=== PATIENT | female | born 1950 | race Caucasian/White ===

== ENCOUNTER 2018-04-08 13:13 | Inpatient (IN) | payer MEDICARE, BC, SELFPAY ==
[2018-04-08] VITALS (12 sets, daily range): BP systolic 139–155; BP diastolic 57–81; PULSE 66–84; RESP 14–18; TEMP 36.6–37.1; O2SAT 93–99; BMI 24.6; BMI 23.5
--- NOTE | 2018-04-08 13:22 | CT_ITS ---
Exam: CTA of the neck with contrast and 2-D reconstructions. HISTORY: Headache. Facial droop. Facial numbness. COMPARISON: None TECHNIQUE: Patient injected with 100 cc Isovue-370 IV. Axial images were followed with 2-D MIPS reconstructions reviewed at a separate workstation. FINDINGS: Normal appearance of the visualized aortic arch. Normal branching pattern of the great vessels. Common carotid arteries are normal for age. Small focal calcified plaque of the left carotid bulb. Otherwise normal carotid bulbs. No measurable stenosis at the carotid bulb or the origins of either ICA. Normal appearance of the cervical ICAs bilaterally to the base of the brain. Normal origin and appearance of the vertebral arteries. The left vertebral artery is dominant. Normal visualized basilar artery. Visualized soft tissues including the lung apices and visualized cervical spine show no gross acute abnormalities. CT/CTA Neck W/WO Contrast IMPRESSION: CTA of the neck vessels is normal for age. Electronically Signed: Santi Morataya MD at 14:28 EDT , Service support ,
--- NOTE | 2018-04-08 13:22 | CT_ITS ---
STUDY: CTA OF THE BRAIN REASON FOR EXAM: Female, 67 years old. Severe headache. Facial droop. Facial numbness. RADIATION DOSAGE (If Supplied By Facility): CTDIvol = ( 24.61 ) mGy, DLP = ( 1376.15 ) mGycm TECHNIQUE: CT angiography was performed with a multi-detector CT scanner. Data acquisition was obtained from the skull base through the vertex following intravenous administration of 100 ml of Isovue-370. MIP images were reconstructed from the axial data set. Post-processing of the angiographic images was performed, with multiplanar reformation and 3D reconstruction. # of Images: 615 Individualized dose optimization techniques were used for this CT. COMPARISON: None. FINDINGS: Normal bilateral petrous carotid arteries. Normal right cavernous carotid artery with a normal supraclinoid bifurcation. There is very mild calcified plaque formation of the left cavernous carotid artery, without a cross-sectional luminal stenosis. Normal right A1 segments of the anterior cerebral artery. Normal left A1 segments of the anterior cerebral artery. Normal intact anterior communicating artery (ACOM). Normal bilateral A2 segments of the anterior cerebral arteries. Normal right M1 and M2 segments of the middle cerebral arteries, with a normal M1 bifurcation. Normal left M1 and M2 segments of the middle cerebral arteries, with a normal M1 bifurcation. Normal right posterior communicating artery (PCOM). Normal left posterior communicating artery (PCOM). Normal bilateral vertebral arteries. Normal basilar artery with a normal basilar bifurcation. The visualized bilateral superior cerebellar (SCA) arteries are normal. Normal bilateral P1, P2 and visualized P3 segments of the posterior cerebral arteries. There is no demonstrated aneurysm of the [place]. There is no demonstrated abnormality of the visualized brain. CT/CTA Head W/WO Contrast IMPRESSION: Normal for age [place] without a demonstrated aneurysm or hemodynamically significant stenosis. Electronically Signed: Santi Morataya MD at 14:30 EDT , Service support ,
--- NOTE | 2018-04-08 13:24 | EKG12_ITS ---
Test Reason : NEURO S/SX Blood Pressure : / mmHG Vent. Rate : 080 BPM Atrial Rate : 080 BPM P-R Int : 128 ms QRS Dur : 096 ms QT Int : 390 ms P-R-T Axes : 071 037 027 degrees QTc Int : 449 ms Normal sinus rhythm Normal ECG Confirmed by KHANG TAYLOR, ANDRY ([id number]), writer editor RAJIV ALVARADO ([id number]) on 04/12/2018 12:41:28 PM Referred By: MELINDA Confirmed By:ANDRY QUIÑONEZ MD
--- NOTE | 2018-04-08 13:24 | RAD_ITS ---
STUDY: X-RAY CHEST REASON FOR EXAM: Female, 67 years old. Shortness of breath. TECHNIQUE: Single frontal view of the chest. COMPARISON: None. FINDINGS: The lungs are clear and expanded. There is no demonstrated pleural abnormality. Normal size heart. Normal mediastinum and lili. Normal visualized pulmonary arteries. Normal visualized aortic arch and descending thoracic aorta. Normal visualized thoracic spine. Normal visualized ribs, clavicles, and shoulders. There is no demonstrated abnormality of the visualized soft tissue structures of the upper abdomen. RAD/Chest 1 View IMPRESSION: Normal x-ray examination of the chest. Electronically Signed: Santi Morataya MD at 14:22 EDT , Service support ,
--- NOTE | 2018-04-08 13:29 | ED.DCSUM_ITS ---
- ER Visit Summary Date of Service: 04/08/18 Chief Complaint: [] Headache for 3 days, went to sleep feeling fine woke with right facial droop slight slurred speech History of Present Illness: The patient is a 67 F [] patient with history of hypertension, migraine headache, chronic right hip pain, prior left foot fracture, reports she went to sleep feeling fine when she woke this morning around 830 complaining of right facial droop and slight slurred speech the symptoms persisted she was brought in for evaluation. She denies headache now, but reports, the headaches were similar to her prior migraines, she has had no fever no cough no numbness weakness paresthesias no difficulty with cognitive function, motor function or sensory function her bowel and bladder habits been normal. She complains of chronic hip pain related to arthritis that basically causes pain to the left leg and decreased range of motion Physical Examination: [] Vital signs are within normal range, she does appear to have a right facial droop and her speech is minimally slurry 1 out of 5 easy to understand her HEENT exam is otherwise unremarkable cranial nerves are intact she is able to fully for all her brows bilaterally her neck is very supple her airways intact tongue movement is normal, her the abdomen is soft nontender upper and lower extremities remarkable for pain in the left hip that again is chronic the back is unremarkable she can hold both feet up, both arms up, she has intact sensation I palpate her extremities, and other than the above her NIH is about 1 Test Results: [] Emergency Department Course and Treatment: [] All the above she will undergo stroke protocol EKG shows a sinus rhythm I have contacted the stroke neurologist discussed the case with them The patient's labs EKG CTA head and neck are all generally unremarkable see those reports on reevaluation her status is remained the same no changes discussed with the patient results need for admission, spoke with Dr. Godoy he agrees with admission for further management, spoke with the hospitalist and will be by to see the patient shortly for admission Treatment Plan: [] Disposition: [] Admit stable Impression: [] rt Facial droop the tia This note was generated with [employer] software. It may contain incorrect words, spelling, and punctuation that were not noted in review of the chart prior to signing ED Disposition - Plan for ED Patient: Chief Complaint: Neuro S/Sx Referrals: Marshall Elizabeth MD [Primary Care Provider] -
[2018-04-08 13:41] LABS: Absolute Lymphocyte Count 2.37 X10^3/ul (0.83-4.51); Absolute Neutrophil Count 3.2 X10^3/uL (2.0-7.7); Basophil# 0.02 X10^3/uL; Basophil% 0.3 % (0-1); Eosinophil# 0.25 X10^3/uL; Hematocrit 38.5 % (37-47); Hemoglobin 12.6 g/dl (12.0-15.0); Lymphocyte # 2.37 X10^3/ul (4.0); Lymphocyte % 38.3 % (19-41); Mean Corp Hgb Conc 32.7 g/gl (32-36); Mean Corpuscular Volume 88.7 fL (81-99); Mean Platelet Vol. 9.2 fl (6.2-12.0); Monocyte# 0.34 X10^3/uL; Monocyte% 5.5 % (0-10); Neutrophil # 3.21 X10^3/uL (2.7-7.7); Neutrophil % 51.9 % (47-70); Platelet Count 275 K/mm3 (150-450); RBC Distribution Width CV 12.9 % (11.6-14.6); RBC Distribution Width SD 41.6 fl (35.1-43.9); Red Blood Count 4.34 M/mm3 (4.2-5.4); White Blood Count 6.2 K/mm3 (4.4-11.0)
[2018-04-08 13:43] LABS: POSITIVE COUNT NO; POSITIVE DIFFERENTIAL NO; POSITIVE MORPHOLOGY NO
[2018-04-08 13:45] LABS: International Normalized Ratio 0.9; Prothrombin Time (Protime)PT. 12.5 SECONDS (11.7-14.9)
[2018-04-08 13:46] LABS: Anion Gap 9 (5-15); BUN 15 mg/dL (7-18); BUN/Creat Ratio 18.7 RATIO (10-20); Calcium,Total 8.8 mg/dL (8.5-10.1); Chloride 103 mmol/L (98-107); EST Glomerular Filtration Rate 76 mL/min (>60); Est Glom Filt Rate - Afr Amer 91 mL/min (>60); Estimated Creatinine Clearance 51.49 ml/min; Glucose 79 mg/dL (74-106); Partial Thromboplast Time 25.8 Seconds (24.1-36.2); Potassium 3.4 mmol/L (3.5-5.1); Sodium Level 137 mmol/L (136-145)
[2018-04-08 13:46] LABS: Bedside Glucose 82 mg/dL (70-110)
--- NOTE | 2018-04-08 15:21 | PCM.HP.STD ---
Problem List (1) Chronic right hip pain Status: Chronic (2) Depression Status: Chronic (3) Hypothyroidism Status: Chronic (4) Hypertension Status: Chronic History of Present Illness Date of Admission: 04/08/18 Chief Complaint: Right facial droop, numbness, headache for 3 days. The patient is a 67 year old F with past medical history as mentioned above presented to the emergency room because of right facial numbness and right facial droop. She woke up this morning around 830 complaining of numbness on the right side of her face along with right-sided facial droop, has been constant since she woke up, associated with headache that has been going on for 3 days and also associated with blurry vision on both eyes and without aggravating or relieving factors. She complains of headache for 3 days duration, generalized headache, throbbing, not radiating and without aggravating or relieving factors. She reported minimal slurred speech but she is not sure. She denied focal arm or leg weakness. She denied chest pain or shortness of breath. She has a history of hypertension and she has been on nifedipine and her blood pressure has been under control. She has history of hypothyroidism and she has been on levothyroxine, most recent TSH in her chart was from May, and it was 0.05 which is low. She has a history of chronic right hip pain due to osteoarthritis and she mentioned that she has been using different [id number] pain medications without improvement. In the emergency department, her vital signs were stable except slightly elevated blood pressure. Her NIH score was 1. Her routine blood work was remarkable for potassium of 3.4, otherwise normal. Troponin is negative. EKG revealed normal sinus rhythm, normal NH interval, normal QRS without evidence of acute ischemic changes or cardiac arrhythmias. Chest x-ray showed no acute findings. CTA of the head and neck revealed no evidence of hemodynamically significant vascular disease or stenosis. She is being admitted for symptoms of right facial paresthesia/right facial droop concerning for probable TIA versus acute stroke. Past Medical History Past Medical History (Chronic Problems): Chronic Problems Chronic right hip pain (Chronic) Depression (Chronic) Hypothyroidism (Chronic) Hypertension (Chronic) Allergies Sulfa (Sulfonamide Antibiotics) Allergy (Verified 04/08/18 13:32) Hives meloxicam [From Mobic] Adverse Reaction (Verified 04/08/18 13:32) Rash Home Medications: Ambulatory Orders Medication Instructions Recorded Duloxetine Hcl [Cymbalta] 60 mg PO BID 01/19/15 Estradiol [Estrace] 2 mg PO DAILY 01/19/15 NIFEdipine [Procardia Xl] 60 mg PO DAILY 01/19/15 Levothyroxine Sodium 100 mcg PO DAILY 04/08/18 Surgical History: - - Tubal ligation, left knee arthroscopic surgery. 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 Review of Systems Constitutional: Denies: Anorexia, Chills, Fever, Weakness Eyes: Reports: Blurred vision. Denies: Double vision, Drainage, Redness HEENT: Denies: Difficulty Hearing, Ear Pain, Eye Pain, Nasal Congestion, Sore Throat Cardiovascular: Denies: Chest Pain, Chest Pressure, Edema, Heaviness, Light Headedness, Palpitations, Syncope Respiratory: Denies: Cough, Hemoptysis, Pleuritic Pain, Shortness of Breath, Sputum production, Wheezing Gastrointestinal: Denies: Abdominal Pain, Constipation, Diarrhea, Nausea, Vomiting Genitourinary: Denies: Dysuria, Frequency, Hematuria Musculoskeletal: Denies: Arm Pain, Back Pain, Foot Pain Skin: Denies: Dryness, Rash Neurological: Reports: Blurred vision, Slurred speech, Headaches, Numbness, Tingling. Denies: Balance problems, Double vision, Change in Speech, Confusion, Focal weakness, Incoordination Psychiatric: Reports: Depression. Denies: Anxiety Endocrine: Denies: Change in Body Habitus, Polydipsia VTE Information - Inpt Only VTE Present on Admission: No VTE Mechan Device Prophylaxis: None VTE Pharm Prophylaxis ordered?: Yes - Physical Exam General: Alert, Oriented x3, Cooperative, No apparent distress HEENT: Atraumatic, PERRLA, EOMI, Normocephalic Oral: Moist Mucosa, No Gingival or Mucosal Lesions/ Ulcerations Neck: Supple, No JVD, Negative Carotid Bruits, Trachea Midline, Thyroid Normal Size and Texture Lungs: Clear to auscultation, No rhonchi, No wheeze, No rales, Diminished Cardiovascular: Regular rate, Regular Rhythm, Normal S1, Normal S2, PMI Normal Abdomen: Bowel Sounds Present, Soft, Non Tender, Non-Distended, No Hepato-splenomegaly Extremities: No clubbing, No cyanosis, No edema Skin: No rashes, No breakdown Lymphatic: No Cervical, Supraclavicular, or Inguinal Adenopathy Neurological: Motor Exam 5/5 strength throughout, - - Minimal right-sided facial droop, other cranial nerves are intact. Psych/Mental Status: Flat Affect, Alert and oriented to time, place, person, mood and affect Vital Signs Temp Pulse Resp BP Pulse Ox 98 F 70 16 146/62 H 96 04/08/18 13:14 04/08/18 14:52 04/08/18 14:52 04/08/18 14:52 04/08/18 14:52 Oxygen Delivery Method Room Air Weight: 130 lb 8.218 oz Body Mass Index (BMI) 24.6 Finger Stick Blood Glucose 82 Laboratory Tests Past 24 Hrs 04/08/18 04/08/18 04/08/18 13:20 13:20 13:20 WBC 6.2 RBC 4.34 Hgb 12.6 Hct 38.5 MCV 88.7 MCH 29.0 MCHC 32.7 RDW 12.9 RDW Differential 41.6 Plt Count 275 MPV 9.2 Immature Gran % (Auto) 0.000 Neut % (Auto) 51.9 Lymph % (Auto) 38.3 [place] % (Auto) 5.5 Eos % (Auto) 4.0 Baso % (Auto) 0.3 Absolute Neuts (auto) 3.2 Absolute Lymphs (auto) 2.37 Total Counted Not Reportable PT 12.5 INR 0.9 APTT 25.8 Sodium 137 Potassium 3.4 L Chloride 103 Carbon Dioxide 25.0 Anion Gap 9 BUN 15 Creatinine 0.80 Estim Creat Clear Calc 51.49 Est GFR (MDRD) Af Amer 91 Est GFR (MDRD) Non-Af 76 BUN/Creatinine Ratio 18.7 Glucose 79 Calcium 8.8 Troponin I < 0.015 POC Glucose 04/08/18 13:42 POC Glucose 82 Clinical Impression(s) from Imaging Studies Head CTA 04/08/18 13:22 IMPRESSION: Normal for age [place] without a demonstrated aneurysm or hemodynamically significant stenosis. Electronically Signed: Santi Morataya MD at 14:30 EDT , Service support , Neck CTA 04/08/18 13:22 IMPRESSION: CTA of the neck vessels is normal for age. Electronically Signed: Santi Morataya MD at 14:28 EDT , Service support , Chest X-Ray 04/08/18 13:24 IMPRESSION: Normal x-ray examination of the chest. Electronically Signed: Santi Morataya MD at 14:22 EDT , Service support , Assessment/Plan This is a 67 years old female patient presented to the emergency department because of right facial numbness/right facial droop and headache and she is being admitted for evaluation for probable TIA versus acute stroke. #1 right facial droop/right facial paresthesia: Concerning for probable TIA versus acute stroke. CTA of the head and neck was unremarkable, no evidence of acute infarction or vascular disease. Apart from minimal right facial droop, neurological examination is intact. Blood pressure slightly elevated, other vital signs are stable. EKG reviewed, unremarkable. Plan: Admit to PCU for observation, cardiac monitoring, NIH stroke scale, fasting lipid profile, start baby aspirin, start Lipitor, MRI brain, 2D echocardiogram, dysphagia screen, PT OT evaluation and treatment. #2 hypertension: Blood pressure minimally elevated, plan to continue nifedipine, close monitoring. #3 hypothyroidism: TSH was 0.05 on May, which is very low. Plan to continue Lovenox, check TSH. #4 depression: Continue Cymbalta. #5 chronic right hip pain: Start Tylenol as needed, OxyIR as needed for severe pain. #6 DVT prophylaxis: Subcu Lovenox. This note was generated with [employer] dictation software. It may contain incorrect words, spelling, and punctuation that were not noted in checking the note before signing. Code Visit OBSV E&M: 19160 Initial observation care L3
--- NOTE | 2018-04-08 15:25 | HP.PCM_ITS ---
Problem List (1) Chronic right hip pain Status: Chronic (2) Depression Status: Chronic (3) Hypothyroidism Status: Chronic (4) Hypertension Status: Chronic History of Present Illness Date of Admission: 04/08/18 Chief Complaint: Right facial droop, numbness, headache for 3 days. The patient is a 67 year old F with past medical history as mentioned above presented to the emergency room because of right facial numbness and right facial droop. She woke up this morning around 830 complaining of numbness on the right side of her face along with right-sided facial droop, has been constant since she woke up, associated with headache that has been going on for 3 days and also associated with blurry vision on both eyes and without aggravating or relieving factors. She complains of headache for 3 days duration, generalized headache, throbbing, not radiating and without aggravating or relieving factors. She reported minimal slurred speech but she is not sure. She denied focal arm or leg weakness. She denied chest pain or shortness of breath. She has a history of hypertension and she has been on nifedipine and her blood pressure has been under control. She has history of hypothyroidism and she has been on levothyroxine, most recent TSH in her chart was from May, and it was 0.05 which is low. She has a history of chronic right hip pain due to osteoarthritis and she mentioned that she has been using different [id number] pain medications without improvement. In the emergency department, her vital signs were stable except slightly elevated blood pressure. Her NIH score was 1. Her routine blood work was remarkable for potassium of 3.4, otherwise normal. Troponin is negative. EKG revealed normal sinus rhythm, normal AL interval, normal QRS without evidence of acute ischemic changes or cardiac arrhythmias. Chest x-ray showed no acute findings. CTA of the head and neck revealed no evidence of hemodynamically significant vascular disease or stenosis. She is being admitted for symptoms of right facial paresthesia/right facial droop concerning for probable TIA versus acute stroke. Past Medical History Past Medical History (Chronic Problems): Chronic Problems Chronic right hip pain (Chronic) Depression (Chronic) Hypothyroidism (Chronic) Hypertension (Chronic) Allergies Sulfa (Sulfonamide Antibiotics) Allergy (Verified 04/08/18 13:32) Hives meloxicam [From Mobic] Adverse Reaction (Verified 04/08/18 13:32) Rash Home Medications: Ambulatory Orders Medication Instructions Recorded Duloxetine Hcl [Cymbalta] 60 mg PO BID 01/19/15 Estradiol [Estrace] 2 mg PO DAILY 01/19/15 NIFEdipine [Procardia Xl] 60 mg PO DAILY 01/19/15 Levothyroxine Sodium 100 mcg PO DAILY 04/08/18 Surgical History: - - Tubal ligation, left knee arthroscopic surgery. 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 Review of Systems Constitutional: Denies: Anorexia, Chills, Fever, Weakness Eyes: Reports: Blurred vision. Denies: Double vision, Drainage, Redness HEENT: Denies: Difficulty Hearing, Ear Pain, Eye Pain, Nasal Congestion, Sore Throat Cardiovascular: Denies: Chest Pain, Chest Pressure, Edema, Heaviness, Light Headedness, Palpitations, Syncope Respiratory: Denies: Cough, Hemoptysis, Pleuritic Pain, Shortness of Breath, Sputum production, Wheezing Gastrointestinal: Denies: Abdominal Pain, Constipation, Diarrhea, Nausea, Vomiting Genitourinary: Denies: Dysuria, Frequency, Hematuria Musculoskeletal: Denies: Arm Pain, Back Pain, Foot Pain Skin: Denies: Dryness, Rash Neurological: Reports: Blurred vision, Slurred speech, Headaches, Numbness, Tingling. Denies: Balance problems, Double vision, Change in Speech, Confusion, Focal weakness, Incoordination Psychiatric: Reports: Depression. Denies: Anxiety Endocrine: Denies: Change in Body Habitus, Polydipsia VTE Information - Inpt Only VTE Present on Admission: No VTE Mechan Device Prophylaxis: None VTE Pharm Prophylaxis ordered?: Yes - Physical Exam General: Alert, Oriented x3, Cooperative, No apparent distress HEENT: Atraumatic, PERRLA, EOMI, Normocephalic Oral: Moist Mucosa, No Gingival or Mucosal Lesions/ Ulcerations Neck: Supple, No JVD, Negative Carotid Bruits, Trachea Midline, Thyroid Normal Size and Texture Lungs: Clear to auscultation, No rhonchi, No wheeze, No rales, Diminished Cardiovascular: Regular rate, Regular Rhythm, Normal S1, Normal S2, PMI Normal Abdomen: Bowel Sounds Present, Soft, Non Tender, Non-Distended, No Hepato- splenomegaly Extremities: No clubbing, No cyanosis, No edema Skin: No rashes, No breakdown Lymphatic: No Cervical, Supraclavicular, or Inguinal Adenopathy Neurological: Motor Exam 5/5 strength throughout, - - Minimal right-sided facial droop, other cranial nerves are intact. Psych/Mental Status: Flat Affect, Alert and oriented to time, place, person, mood and affect Vital Signs Temp Pulse Resp BP Pulse Ox 98 F 70 16 146/62 H 96 04/08/18 13:14 04/08/18 14:52 04/08/18 14:52 04/08/18 14:52 04/08/18 14:52 Oxygen Delivery Method Room Air Weight: 130 lb 8.218 oz Body Mass Index (BMI) 24.6 Finger Stick Blood Glucose 82 Laboratory Tests Past 24 Hrs 04/08/18 04/08/18 04/08/18 13:20 13:20 13:20 WBC 6.2 RBC 4.34 Hgb 12.6 Hct 38.5 MCV 88.7 MCH 29.0 MCHC 32.7 RDW 12.9 RDW Differential 41.6 Plt Count 275 MPV 9.2 Immature Gran % (Auto) 0.000 Neut % (Auto) 51.9 Lymph % (Auto) 38.3 [place] % (Auto) 5.5 Eos % (Auto) 4.0 Baso % (Auto) 0.3 Absolute Neuts (auto) 3.2 Absolute Lymphs (auto) 2.37 Total Counted Not Reportable PT 12.5 INR 0.9 APTT 25.8 Sodium 137 Potassium 3.4 L Chloride 103 Carbon Dioxide 25.0 Anion Gap 9 BUN 15 Creatinine 0.80 Estim Creat Clear Calc 51.49 Est GFR (MDRD) Af Amer 91 Est GFR (MDRD) Non-Af 76 BUN/Creatinine Ratio 18.7 Glucose 79 Calcium 8.8 Troponin I < 0.015 POC Glucose 04/08/18 13:42 POC Glucose 82 Clinical Impression(s) from Imaging Studies Head CTA 04/08/18 13:22 IMPRESSION: Normal for age [place] without a demonstrated aneurysm or hemodynamically significant stenosis. Electronically Signed: Santi Morataya MD at 14:30 EDT , Service support , Neck CTA 04/08/18 13:22 IMPRESSION: CTA of the neck vessels is normal for age. Electronically Signed: Santi Morataya MD at 14:28 EDT , Service support , Chest X-Ray 04/08/18 13:24 IMPRESSION: Normal x-ray examination of the chest. Electronically Signed: Santi Morataya MD at 14:22 EDT , Service support , Assessment/Plan This is a 67 years old female patient presented to the emergency department because of right facial numbness/right facial droop and headache and she is being admitted for evaluation for probable TIA versus acute stroke. #1 right facial droop/right facial paresthesia: Concerning for probable TIA versus acute stroke. CTA of the head and neck was unremarkable, no evidence of acute infarction or vascular disease. Apart from minimal right facial droop, neurological examination is intact. Blood pressure slightly elevated, other vital signs are stable. EKG reviewed, unremarkable. Plan: Admit to PCU for observation, cardiac monitoring, NIH stroke scale, fasting lipid profile, start baby aspirin, start Lipitor, MRI brain, 2D echocardiogram, dysphagia screen, PT OT evaluation and treatment. #2 hypertension: Blood pressure minimally elevated, plan to continue nifedipine, close monitoring. #3 hypothyroidism: TSH was 0.05 on May, which is very low. Plan to continue Lovenox, check TSH. #4 depression: Continue Cymbalta. #5 chronic right hip pain: Start Tylenol as needed, OxyIR as needed for severe pain. #6 DVT prophylaxis: Subcu Lovenox. This note was generated with [employer] dictation software. It may contain incorrect words, spelling, and punctuation that were not noted in checking the note before signing. Code Visit OBSV E&M: 28880 Initial observation care L3
--- NOTE | 2018-04-08 15:43 | ECHOD_ITS ---
Reason For Study: TIA/CVA Procedure This was a 2D Doppler, Color Flow transthoracic echocardiogram. Exam performed portable in patient room. Left Ventricle Normal LV size. Left ventricular systolic function is normal. The estimated ejection fraction is 65 %. Diastolic function is indeterminate. No regional wall motion abnormalities noted. Right Ventricle Normal RV size. Normal systolic function. Atria Normal left atrium. Normal right atrium. No doppler evidence for ASD. Mitral Valve There is no mitral annular calcification. Normal mitral valve. Trivial mitral valve insufficiency. Tricuspid Valve Normal tricuspid valve. Mild to moderate (1-2+) tricuspid valve insufficiency. Right ventricular systolic pressure estimated to be 36 mmHg. Aortic Valve Trisinus/trileaflet aortic valve. Normal aortic valve. Pulmonic Valve The pulmonic valve is not well visualized. Great Vessels Normal sized aortic root. Pericardium/Pleural No pericardial effusion. MMode/2D Measurements & Calculations LVIDd: 4.3 cm IVSd: 0.79 cm Ao root diam: 2.5 cm LVIDs: 2.2 cm LVPWd: 0.76 cm RVDd: 3.3 cm FS: 49.7 % LAV(MOD-bp): 40.7 ml LVAd ap4: 21.9 cm2 SV(MOD-sp4): 32.3 ml LAV(MOD-bp) Indexed: 25.9 ml/m2 EDV(MOD-sp4): 53.2 ml LAV(MOD-sp2): 32.9 ml EDV(sp4-el): 54.5 ml LAV(MOD-sp4): 42.5 ml LVAs ap4: 12.0 cm2 ESV(MOD-sp4): 20.9 ml ESV(sp4-el): 19.6 ml EF(MOD-sp4): 60.7 % EF(sp4-el): 64.1 % SV(sp4-el): 34.9 ml LA A4 area: 16.6 cm2 RA A4 area: 10.8 cm2 Doppler Measurements & Calculations MV E max chacorta: 77.1 cm/sec Lat Peak E' Chacorta: 12.0 cm/sec Med Peak E' Chacorta: 8.3 cm/sec MV A max chacorta: 119.2 cm/sec E/E' lat: 6.4 E/E' med: 9.3 MV E/A: 0.65 Ao V2 max: 163.1 cm/sec LV V1 max: 125.7 cm/sec PA V2 max: 89.3 cm/sec Ao max P.6 mmHg LV V1 max P.3 mmHg Ao V2 mean: 113.9 cm/sec Ao mean P.8 mmHg Ao V2 VTI: 40.0 cm TR max chacorta: 288.5 cm/sec TR max P.3 mmHg Interpretation Summary Left ventricular systolic function is normal. The estimated ejection fraction is 65 %. Trivial mitral valve insufficiency. Mild to moderate (1-2+) tricuspid valve insufficiency. Right ventricular systolic pressure estimated to be 36 mmHg. Diastolic function is indeterminate. Ordering Physician: Yaw Hylton Referring Physician: Marshall Elizabeth Performed By: Ella Chery RDCS, RVT
--- NOTE | 2018-04-08 15:43 | MRI_ITS ---
STUDY: MRI BRAIN WITHOUT CONTRAST REASON FOR EXAM: Female, 67 years old. Left facial droop TECHNIQUE: Standardized multiplanar fat and water weighted pulse sequences were obtained. # of Images: 294 COMPARISON: CT of the brain on April 08, 2018 FINDINGS: Mild age-appropriate atrophy.. Normal white matter tracts of the supratentorial brain. Normal bilateral basal ganglia. Tiny perivascular space in left posterior thalamus There is no extra-axial fluid accumulation. Normal flow voids within the major intracranial circulation suggesting patency by spin echo criteria. Partial empty sella once uncertain significance. Normal, infundibular stalk, optic chiasm and hypothalamus. Normal tectal plate and pineal gland. Normal midbrain, romi and medulla. Normal cerebellum. Normal basal cisterns. Normal bilateral temporal bones. Normal bilateral internal auditory canals. There are postsurgical changes of the orbits. Normal visualized paranasal sinuses. Normal calvarium and skull base. Normal visualized soft tissue structures. Normal visualized upper cervical spine. MRI/Brain without Contrast IMPRESSION: Mild age-appropriate atrophy. No appreciable white matter disease or evidence for acute infarct Incidental finding of partial empty sella of uncertain significance Electronically Signed: Cole Patterson MD at 20:33 EDT , Service support ,
[2018-04-08 16:34] LABS: Bacteria 0 SEEN /hpf (None Seen); Mucous, Urine 0 SEEN /hpf (<or=2+); Red Blood Cells-Urine 0 SEEN /hpf (0-5); White Blood Cells 0 SEEN /hpf (0-5)
[2018-04-08 16:38] LABS: Color, Urine Yellow (Yellow); Glucose, Dipstick Normal (Normal); Ketone-Dipstick 5 mg/dl (Negative); Leukocyte Esterase-Dipstick Negative /ul (Negative); Nitrite-Dipstick Negative (Negative); Occult Blood-Urine Negative /ul (Negative); Protein-Dipstick Negative (Negative); Specific Gravity, Urine 1.015 (1.002-1.030); Urine Bilirubin Dipstick Negative (Negative); Urine Clarity Clear (Clear); Urine Urobilinogen Normal (Normal)
[2018-04-08] MEDS: 0.9% Normal Saline 1,000 ML 75 ML IV (16:53)
[2018-04-08 17:00] LABS: Squamous Epithelial Cells - UA 0-5 SEEN /hpf (5-10)
[2018-04-08] MEDS: oxyCODONE 5 MG Tablet PO (17:02)
[2018-04-08 17:09] LABS: Thyroid Stim Hormone (TSH) < 0.01 uIU/mL (0.358-3.74)
[2018-04-08] MEDS: Acetaminophen 325 MG Tablet 650 MG PO (20:30)
[2018-04-08] MEDS: DULoxetine Hcl 60 MG Capsule PO (21:35)
[2018-04-08] MEDS: Atorvastatin Calcium 80 MG Tablet PO (21:36)
[2018-04-08] MEDS: Ketorolac 15 MG/ML Vial IV (23:05)
[2018-04-09] VITALS (13 sets, daily range): BP systolic 122–149; BP diastolic 50–65; PULSE 72–92; RESP 16–20; TEMP 36.4–36.8; O2SAT 95–97; BMI 23.5
[2018-04-09] MEDS: Ketorolac 15 MG/ML Vial IV ×3 (05:08→18:01)
[2018-04-09] MEDS: Levothyroxine 100 MCG Tablet PO (05:08)
[2018-04-09 06:14] LABS: Cholesterol 158 mg/dL (200); High Density Lipoprotein 49 mg/dL; Triglycerides 101 mg/dL; Very Low Density Lipoprotein 20 mg/dL (5-40)
[2018-04-09] MEDS: NIFEdipine 60 MG Tablet PO (08:35)
[2018-04-09] MEDS: DULoxetine Hcl 60 MG Capsule PO ×2 (08:35→21:16)
[2018-04-09] MEDS: Enoxaparin 40 MG/0.4 ML Syringe SC (08:35)
[2018-04-09] MEDS: Aspirin 81 MG TAB.CHEW PO (08:35)
[2018-04-09] MEDS: oxyCODONE 5 MG Tablet PO ×2 (08:38→21:31)
[2018-04-09] MEDS: 0.9% NaCl Peripheral Flush Adult/Peds IV ×2 (11:21→18:01)
--- NOTE | 2018-04-09 12:06 | CHAPLAIN ---
Type of Pastoral Visit _x__ Initial Visit ___ Follow-up Visit ___ On-call Visit ___ General Patient Visit ___ Spiritual Assessment ___ Family Conference ___ Bereavement ___ Rapid Response ___ Code Blue ___ Other (describe below) Pastoral Care Referral From _x__ Patient ___ Family ___ Nurse ___ Physician ___ Grounds And Nursery Specialist ___ Bridge Maintainer ___ Other (describe below) Sacrament/Intervention _x__ Active listening ___ Anointing ___ Caodaism _x__ Bereavement ___ Communion _x__ Flower exploration ___ _x__ Life review _x__ Prayer ___ Reconciliation ___ Sacrament of Sick _x__ Supportive presence ___ Wedding ___ Other (describe below) Pastoral Comments patient says she is thankful for a visit for spiritual care; pt describes reason for admission and continues to recount about the of spouse 2 years ago and how she is managing; pt has concerns about living alone, finances; pt says that she does have family and a long membership in a jainism that is close enough to walk to; pt says that she finds support and delight in two dogs;
[2018-04-09 12:52] LABS: Free T3 2.5 pg/mL (2.18-3.98); T4 Free Direct 1.32 ng/dL (0.76-1.46)
--- NOTE | 2018-04-09 16:19 | CASEMGMT ---
Therapy is recommending further therapy. This RN CM to room to speak with pt regarding same and pt declines HHC or OP therapy at this time. Pt is aware that if she gets home and feels the need for HHC or OP therapy that she can get ahold of Dr. Elizabeth for an order, voices understanding. Pt voices no further concerns/needs at this time. SStaten ALIS CM
--- NOTE | 2018-04-09 18:47 | PCM.PN.HOSP ---
Subjective: Doing well, numbness and droop is resolving. She denies any recent rashes or tick bites Vitals/I&O's: Vital Signs Temp Pulse Resp BP Pulse Ox 97.6 F L 86 18 123/50 H 95 04/09/18 16:00 04/09/18 16:00 04/09/18 16:00 04/09/18 16:00 04/09/18 16:00 Oxygen Delivery Method Room Air Weight: 124 lb 8.979 oz Body Mass Index (BMI) 23.5 Finger Stick Blood Glucose 82 Intake and Output for Last 24 Hours 04/07/18 04/08/18 04/09/18 23:59 23:59 23:59 Intake Total 540 / 540 2537 / 2537 Balance 540 / 540 2537 / 2537 General: Alert, Oriented x3, Cooperative, No apparent distress HEENT: Atraumatic, EOMI, Normocephalic Oral: Moist Mucosa Neck: Supple, No JVD Lungs: Clear to auscultation, Normal air movement, No rhonchi, No wheeze, No rales Cardiovascular: Regular rate, Regular Rhythm, Normal S1, Normal S2, No murmurs Abdomen: Soft, Non Tender, Non-Distended, No Hepato-splenomegaly Extremities: No edema, Capillary Refill Less than 3 Seconds Neurological: Neuro grossly intact, Sensory exam intact to light touch and pain Psych/Mental Status: Normal Affect, Appropriate Laboratory Results 04/09/18 05:14: Triglycerides 101, Cholesterol 158, LDL Cholesterol 89, VLDL Cholesterol 20, HDL Cholesterol 49 04/09/18 05:14: Free T4 1.32, Free T3 pg/dL 2.5 Current Medications Acetaminophen (Tylenol) 650 mg PO Q6H PRN PRN PRN Reason: Headache/Temp>99F Last Admin: 04/08/18 20:30 Dose: 650 mg Aspirin (Aspirin, Baby) 81 mg PO DAILY@0800 [facility] Last Admin: 04/09/18 08:35 Dose: 81 mg Atorvastatin Calcium (Lipitor) 80 mg PO QHS [facility] Last Admin: 04/08/18 21:36 Dose: 80 mg Bupropion HCl (Wellbutrin Tablets) 75 mg PO BID [facility] Duloxetine HCl (Cymbalta) 60 mg PO BID [facility] Last Admin: 04/09/18 08:35 Dose: 60 mg Enoxaparin Sodium (Lovenox) 40 mg SC DAILY@1000 [facility] Last Admin: 04/09/18 08:35 Dose: 40 mg Sodium Chloride () 500 mls @ 999 mls/hr IV .Q31M ONE Last Admin: 04/08/18 14:16 Dose: 999 mls/hr Ketorolac Tromethamine (Toradol) 15 mg IV Q6H PRN PRN PRN Reason: PAIN Stop: 04/13/18 22:40 Last Admin: 04/09/18 18:01 Dose: 15 mg Levothyroxine Sodium (Synthroid) 100 mcg PO DAILY@0600 [facility] Last Admin: 04/09/18 05:08 Dose: 100 mcg Magnesium Hydroxide (Milk Of Magnesia) 30 ml PO DAILY PRN PRN Reason: Constipation Nifedipine (Procardia Xl) 60 mg PO DAILY [facility] Last Admin: 04/09/18 08:35 Dose: 60 mg Nutritional Formula (Lactose Free) (Ensure Enlive) 120 ml PO 4X/DAY [facility] Last Admin: 04/09/18 18:01 Dose: Not Given Ondansetron HCl (Zofran) 4 mg IV Q8H PRN PRN PRN Reason: NAUSEA/VOMITING Oxycodone HCl (Oxyir) 5 mg PO Q6H PRN PRN PRN Reason: SEVERE PAIN (6-10/10) Last Admin: 04/09/18 08:38 Dose: 5 mg Sodium Chloride () 5 - 30 ml IV UD PRN PRN Reason: SALINE FLUSH Last Admin: 04/09/18 18:01 Dose: 10 ml Medical Necessity - Tobacco Use Smoking Status: Never smoker Tobacco Use: Non-smoker Assessment/Plan 1. Right facial droop and numbness/HTN - TIA vs Stroke however MRI was negative - No reason to suspect lyme, no new joint pain, no rash or tick bite and she does not go outside - C/w ASA and statin for TIA - Echo was normal - PT/OT normal - C/w nifedipine 2. Depression - C/w cymbalata - she was on abilify because she needed something more but she could not tolerate the side-effects - Will try Wellbutrin with the cymbalata 3. Hypothyroidism - TSH is <0.01 - T3/4 is 2.5/1.32 - Will c/w synthroid 4. Chronic hip pain left - For 2 years since she broke her foot - No new changes, feel like the depression is contributing to the symptomatology - Oxy for severe pain DVT: Jazmin Code Visit Inpatient E&M: 47464 Subs Hosp L2
--- NOTE | 2018-04-09 19:00 | PN_ITS ---
Subjective: Doing well, numbness and droop is resolving. She denies any recent rashes or tick bites Vitals/I&O's: Vital Signs Temp Pulse Resp BP Pulse Ox 97.6 F L 86 18 123/50 H 95 04/09/18 16:00 04/09/18 16:00 04/09/18 16:00 04/09/18 16:00 04/09/18 16:00 Oxygen Delivery Method Room Air Weight: 124 lb 8.979 oz Body Mass Index (BMI) 23.5 Finger Stick Blood Glucose 82 Intake and Output for Last 24 Hours 04/07/18 04/08/18 04/09/18 23:59 23:59 23:59 Intake Total 540 / 540 2537 / 2537 Balance 540 / 540 2537 / 2537 General: Alert, Oriented x3, Cooperative, No apparent distress HEENT: Atraumatic, EOMI, Normocephalic Oral: Moist Mucosa Neck: Supple, No JVD Lungs: Clear to auscultation, Normal air movement, No rhonchi, No wheeze, No rales Cardiovascular: Regular rate, Regular Rhythm, Normal S1, Normal S2, No murmurs Abdomen: Soft, Non Tender, Non-Distended, No Hepato-splenomegaly Extremities: No edema, Capillary Refill Less than 3 Seconds Neurological: Neuro grossly intact, Sensory exam intact to light touch and pain Psych/Mental Status: Normal Affect, Appropriate Laboratory Results 04/09/18 05:14: Triglycerides 101, Cholesterol 158, LDL Cholesterol 89, VLDL Cholesterol 20, HDL Cholesterol 49 04/09/18 05:14: Free T4 1.32, Free T3 pg/dL 2.5 Current Medications Acetaminophen (Tylenol) 650 mg PO Q6H PRN PRN PRN Reason: Headache/Temp>99F Last Admin: 04/08/18 20:30 Dose: 650 mg Aspirin (Aspirin, Baby) 81 mg PO DAILY@0800 [facility] Last Admin: 04/09/18 08:35 Dose: 81 mg Atorvastatin Calcium (Lipitor) 80 mg PO QHS [facility] Last Admin: 04/08/18 21:36 Dose: 80 mg Bupropion HCl (Wellbutrin Tablets) 75 mg PO BID [facility] Duloxetine HCl (Cymbalta) 60 mg PO BID [facility] Last Admin: 04/09/18 08:35 Dose: 60 mg Enoxaparin Sodium (Lovenox) 40 mg SC DAILY@1000 [facility] Last Admin: 04/09/18 08:35 Dose: 40 mg Sodium Chloride () 500 mls @ 999 mls/hr IV .Q31M ONE Last Admin: 04/08/18 14:16 Dose: 999 mls/hr Ketorolac Tromethamine (Toradol) 15 mg IV Q6H PRN PRN PRN Reason: PAIN Stop: 04/13/18 22:40 Last Admin: 04/09/18 18:01 Dose: 15 mg Levothyroxine Sodium (Synthroid) 100 mcg PO DAILY@0600 [facility] Last Admin: 04/09/18 05:08 Dose: 100 mcg Magnesium Hydroxide (Milk Of Magnesia) 30 ml PO DAILY PRN PRN Reason: Constipation Nifedipine (Procardia Xl) 60 mg PO DAILY [facility] Last Admin: 04/09/18 08:35 Dose: 60 mg Nutritional Formula (Lactose Free) (Ensure Enlive) 120 ml PO 4X/DAY [facility] Last Admin: 04/09/18 18:01 Dose: Not Given Ondansetron HCl (Zofran) 4 mg IV Q8H PRN PRN PRN Reason: NAUSEA/VOMITING Oxycodone HCl (Oxyir) 5 mg PO Q6H PRN PRN PRN Reason: SEVERE PAIN (6-10/10) Last Admin: 04/09/18 08:38 Dose: 5 mg Sodium Chloride () 5 - 30 ml IV UD PRN PRN Reason: SALINE FLUSH Last Admin: 04/09/18 18:01 Dose: 10 ml Medical Necessity - Tobacco Use Smoking Status: Never smoker Tobacco Use: Non-smoker Assessment/Plan 1. Right facial droop and numbness/HTN - TIA vs Stroke however MRI was negative - No reason to suspect lyme, no new joint pain, no rash or tick bite and she does not go outside - C/w ASA and statin for TIA - Echo was normal - PT/OT normal - C/w nifedipine 2. Depression - C/w cymbalata - she was on abilify because she needed something more but she could not tolerate the side-effects - Will try Wellbutrin with the cymbalata 3. Hypothyroidism - TSH is <0.01 - T3/4 is 2.5/1.32 - Will c/w synthroid 4. Chronic hip pain left - For 2 years since she broke her foot - No new changes, feel like the depression is contributing to the symptomatology - Oxy for severe pain DVT: Jazmin Code Visit Inpatient E&M: 47109 Subs Hosp L2
[2018-04-09] MEDS: Atorvastatin Calcium 80 MG Tablet PO (21:16)
[2018-04-09] MEDS: buPROPion 75 MG Tablet PO (21:20)
[2018-04-10] VITALS (9 sets, daily range): BP systolic 124–133; BP diastolic 50–64; PULSE 83–96; RESP 16–20; TEMP 36.6–36.8; O2SAT 94–97; BMI 23.5
[2018-04-10] MEDS: Ketorolac 15 MG/ML Vial IV ×2 (00:06→05:52)
[2018-04-10] MEDS: 0.9% NaCl Peripheral Flush Adult/Peds IV ×2 (00:07→05:47)
[2018-04-10] MEDS: Levothyroxine 100 MCG Tablet PO (05:44)
[2018-04-10 06:51] LABS: Anion Gap 8 (5-15); BUN 16 mg/dL (7-18); BUN/Creat Ratio 24.5 RATIO (10-20); Calcium,Total 8.8 mg/dL (8.5-10.1); Chloride 105 mmol/L (98-107); Creatinine, Serum 0.65 mg/dL (0.55-1.02); EST Glomerular Filtration Rate 96 mL/min (>60); Est Glom Filt Rate - Afr Amer 116 mL/min (>60); Estimated Creatinine Clearance 41.19 ml/min; Glucose 100 mg/dL (74-106); Potassium 3.5 mmol/L (3.5-5.1); Sodium Level 142 mmol/L (136-145)
[2018-04-10] MEDS: Enoxaparin 40 MG/0.4 ML Syringe SC (07:49)
[2018-04-10] MEDS: buPROPion 75 MG Tablet PO (07:49)
[2018-04-10] MEDS: NIFEdipine 60 MG Tablet PO (07:49)
[2018-04-10] MEDS: Aspirin 81 MG TAB.CHEW PO (07:49)
[2018-04-10] MEDS: DULoxetine Hcl 60 MG Capsule PO (07:49)
--- NOTE | 2018-04-10 09:03 | DCINST_ITS ---
- Discharge Diagnoses Current Active Problems: Current Active and Chronic Problems Chronic right hip pain (Chronic) Depression (Chronic) Hypothyroidism (Chronic) Hypertension (Chronic) You will use the following diet at home:: Regular Your food should be the consistency of: Regular Your liquids should be the consistency of: Regular/Thin Discharge Activity: No Restrictions Call your doctor if you observe: Numbness or Tingling, Dizziness, Chest pain, Increased palpitations (irregular heartbeat) Allergies/Adverse Reactions: Allergies Sulfa (Sulfonamide Antibiotics) Allergy (Verified 04/08/18 13:32) Hives meloxicam [From Mobic] Adverse Reaction (Verified 04/08/18 13:32) Rash Medications to take at Discharge Duloxetine Hcl [Cymbalta] 60 mg PO BID 01/19/15 Estradiol [Estrace] 2 mg PO DAILY 01/19/15 NIFEdipine [Procardia Xl] 60 mg PO DAILY 01/19/15 Levothyroxine Sodium 100 mcg PO DAILY 04/08/18 Aspirin [Aspirin, Baby] 81 mg PO DAILY@0800 #30 tab.chew 04/10/18 Atorvastatin Calcium [Lipitor] 40 mg PO QHS #30 tablet 04/10/18 buPROPion tablets [Wellbutrin tablets] 75 mg PO BID #60 tablet 04/10/18 The following prescriptions were given: Aspirin [Aspirin, Baby] 81 mg PO DAILY@0800 #30 tab.chew Atorvastatin Calcium [Lipitor] 40 mg PO QHS #30 tablet buPROPion tablets [Wellbutrin tablets] 75 mg PO BID #60 tablet Primary Care Physician: Marshall Elizabeth MD [Primary Care Provider] - Please follow up with your Primary Care Physician in: in 3-5 days Test Results: Test results from this visit will be discussed in further detail at your follow- up appointment, if applicable.
--- NOTE | 2018-04-10 09:04 | PCM.DC.SUM ---
Discharge Date and Diagnosis Date of Admission: 04/08/18 Date of Discharge: 04/10/18 - Secondary Discharge Diagnosis Chronic Problems Chronic right hip pain (Chronic) Depression (Chronic) Hypothyroidism (Chronic) Hypertension (Chronic) Hospital Course and Treatment Imaging Results: CTA Head: IMPRESSION: Normal for age [place] without a demonstrated aneurysm or hemodynamically significant stenosis. CTA Neck: IMPRESSION: CTA of the neck vessels is normal for age. MRI Brain: IMPRESSION: Mild age-appropriate atrophy. No appreciable white matter disease or evidence for acute infarct Incidental finding of partial empty sella of uncertain significance Consults: None Operations: None Procedures: 2-D Echocardiogram - Interpretation Summary Left ventricular systolic function is normal. The estimated ejection fraction is 65 %. Trivial mitral valve insufficiency. Mild to moderate (1-2+) tricuspid valve insufficiency. Right ventricular systolic pressure estimated to be 36 mmHg. Diastolic function is indeterminate. Summary of Care Provided: HPI: The patient is a 67 year old F with past medical history as mentioned above presented to the emergency room because of right facial numbness and right facial droop. She woke up this morning around 830 complaining of numbness on the right side of her face along with right-sided facial droop, has been constant since she woke up, associated with headache that has been going on for 3 days and also associated with blurry vision on both eyes and without aggravating or relieving factors. She complains of headache for 3 days duration, generalized headache, throbbing, not radiating and without aggravating or relieving factors. She reported minimal slurred speech but she is not sure. She denied focal arm or leg weakness. She denied chest pain or shortness of breath. She has a history of hypertension and she has been on nifedipine and her blood pressure has been under control. She has history of hypothyroidism and she has been on levothyroxine, most recent TSH in her chart was from May, and it was 0.05 which is low. She has a history of chronic right hip pain due to osteoarthritis and she mentioned that she has been using different [id number] pain medications without improvement. In the emergency department, her vital signs were stable except slightly elevated blood pressure. Her NIH score was 1. Her routine blood work was remarkable for potassium of 3.4, otherwise normal. Troponin is negative. EKG revealed normal sinus rhythm, normal WA interval, normal QRS without evidence of acute ischemic changes or cardiac arrhythmias. Chest x-ray showed no acute findings. CTA of the head and neck revealed no evidence of hemodynamically significant vascular disease or stenosis. She is being admitted for symptoms of right facial paresthesia/right facial droop concerning for probable TIA versus acute stroke. Vital Signs - 24 hr Temp Pulse Resp BP Pulse Ox 04/10/18 07:45 18 04/10/18 07:42 97.8 F 96 18 129/60 H 96 04/10/18 07:06 88 04/10/18 03:08 98.2 F 89 20 H 124/64 H 94 04/10/18 02:59 86 04/10/18 00:13 98.3 F 88 16 128/50 H 97 04/09/18 23:23 88 04/09/18 21:34 98.0 F 92 20 H 132/57 H 96 04/09/18 19:24 90 04/09/18 16:00 97.6 F L 86 18 123/50 H 95 04/09/18 15:17 82 04/09/18 12:02 98.2 F 80 16 141/52 H 96 04/09/18 11:11 78 General: Alert, Oriented x3, Cooperative, No apparent distress HEENT: Atraumatic, PERRLA, EOMI, Normocephalic Oral: Moist Mucosa Neck: Supple, No JVD Lungs: Clear to auscultation, Normal air movement, No rhonchi, No wheeze, No rales Cardiovascular: Regular rate, Regular Rhythm, Normal S1, Normal S2, No murmurs Abdomen: Soft, Non Tender, Non-Distended, No Hepato-splenomegaly Extremities: No edema, Capillary Refill Less than 3 Seconds Skin: No rashes, No breakdown Musculoskeletal: No Tenderness to Palpation of Joints or Extremities Neurological: Cranial nerves II-XII grossly intact, Motor Exam 5/5 strength throughout, Sensory exam intact to light touch and pain Psych/Mental Status: Normal Affect, Appropriate Hospital Course: 1. Right facial numbness and droop - She presented with facial numbness and droop. Work-up was negative for a stroke and this was likely a TIA. As such she was discharge on lipitor 40 mg and aspirin 81 mg daily. She will need outpatient follow-up. She denied any worsening joint pain, or recent rash, or tick bite, so unlikely to be lyme, especially since the symptoms resolved without abx treatment over her 2 day admission. 2. Hip pain/Depression - She states that she has left hip pain that has been unchanged for 2 years since her and she fractured her foot. On exam her pain appears to be arthritic. I felt that her pain was exacerbated by her depression/grief, she is only on cymbalta 60 mg BID, so I added wellbutrin 75 mg BID to see if that provides any benefit for her depression and therefore her pain. No narcotics are warranted. She did tolerate her first two doses so hopefully she could tolerate an increase to 300 mg in a few weeks. I did advise her to find a therapist as well to help her through her grief and depression. - Physical Exam Vital Signs Temp Pulse Resp BP Pulse Ox 97.8 F 96 18 129/60 H 96 04/10/18 07:42 04/10/18 07:42 04/10/18 07:45 04/10/18 07:42 04/10/18 07:42 Oxygen Delivery Method Room Air Weight: 124 lb 8.979 oz Body Mass Index (BMI) 23.5 Finger Stick Blood Glucose 82 Intake and Output for Last 24 Hours 04/08/18 04/09/18 04/10/18 23:59 23:59 23:59 Intake Total 540 / 540 2657 / 2657 100 / 100 Balance 540 / 540 2657 / 2657 100 / 100 Laboratory Tests Past 24 Hrs 04/09/18 04/10/18 05:14 05:28 Sodium 142 Potassium 3.5 Chloride 105 Carbon Dioxide 29.0 Anion Gap 8 BUN 16 Creatinine 0.65 Estim Creat Clear Calc 41.19 Est GFR (MDRD) Af Amer 116 Est GFR (MDRD) Non-Af 96 BUN/Creatinine Ratio 24.5 H Glucose 100 Calcium 8.8 Free T4 1.32 Free T3 pg/dL 2.5 Discharge Activity: No Restrictions Call your doctor if you observe: Numbness or Tingling, Dizziness, Chest pain, Increased palpitations (irregular heartbeat) Home Medications: Medications to take at Discharge Duloxetine Hcl [Cymbalta] 60 mg PO BID 01/19/15 Estradiol [Estrace] 2 mg PO DAILY 01/19/15 NIFEdipine [Procardia Xl] 60 mg PO DAILY 01/19/15 Levothyroxine Sodium 100 mcg PO DAILY 04/08/18 Aspirin [Aspirin, Baby] 81 mg PO DAILY@0800 #30 tab.chew 04/10/18 Atorvastatin Calcium [Lipitor] 40 mg PO QHS #30 tablet 04/10/18 buPROPion tablets [Wellbutrin tablets] 75 mg PO BID #60 tablet 04/10/18 Following Prescrptions Were Given to Patient: Aspirin [Aspirin, Baby] 81 mg PO DAILY@0800 #30 tab.chew Atorvastatin Calcium [Lipitor] 40 mg PO QHS #30 tablet buPROPion tablets [Wellbutrin tablets] 75 mg PO BID #60 tablet Primary Care Physician: Marshall Elizabeth MD [Primary Care Provider] - Please follow up with your Primary Care Physician in: in 3-5 days Disposition: Home Minutes spent on discharge:: 35 Patient Condition:: Good Medical Necessity - Tobacco Use Smoking Status: Never smoker Tobacco Use: Non-smoker Meaningful Use Info Meaningful Use Diagnoses (Choose all that apply): None applicable Code Visit Inpatient E&M: 24272 Disch Hosp
[2018-04-10] MEDS: oxyCODONE 5 MG Tablet PO (10:28)
[2018-04-10] MEDS: Acetaminophen 325 MG Tablet 650 MG PO (13:08)
== END 2018-04-10 09:03 | disposition home or self-care (01) | DRG 69 ==
LOC: ED 13:59 → PCU 15:35 → ED 04-10 14:49 → PCU 04-10 14:56
PROVIDERS: Family Medicine; Admitting Provider Hospitalist; Emergency Provider Emergency Medicine; Family Provider Family Medicine; PCP Family Medicine; Visit Provider Hospitalist
DX: G45.9 Transient cerebral ischemic attack, unspecified (principal); G89.29 Other chronic pain; M25.551 Pain in right hip; E03.9 Hypothyroidism, unspecified; F32.9 Major depressive disorder, single episode, unspecified; I10 Essential (primary) hypertension; M16.11 Unilateral primary osteoarthritis, right hip; R20.0 Anesthesia of skin; R29.810 Facial weakness
CPT/HCPCS: 36415; 70496; 70498; 70551; 71045; 80048; 80061; 81001; 82962; 84439; 84443; 84481; 84484; 85025; 85610; 85730; 93005; 93306; 97162; 97165; 97802; 99282; J7030; J7040; Q9967; A4216

== ENCOUNTER → 2019-03-15 | Outpatient (CLI) | payer MEDICARE, BC, SELFPAY ==
[2019-03-15 12:29] LABS: Absolute Lymphocyte Count 1.62 X10^3/uL (0.83-4.51); Absolute Neutrophil Count 3.5 X10^3/uL (2.0-7.7); Basophil# 0.05 X10^3/uL; Basophil% 0.9 % (0-1); Eosinophil# 0.24 X10^3/uL; Eosinophils% 4.1 % (0-5); Hematocrit 39.6 % (37-47); Hemoglobin 12.7 g/dL (12.0-15.0); Lymphocyte # 1.62 X10^3/ul (4.0); Lymphocyte % 27.8 % (19-41); Mean Corp Hgb Conc 32.1 g/dL (32-36); Mean Corpuscular Hgb 29.1 pg (27.0-32.0); Mean Corpuscular Volume 90.6 fL (81-99); Mean Platelet Vol. 9.6 fl (6.2-12.0); Monocyte# 0.42 X10^3/uL; Monocyte% 7.2 % (0-10); NRBC Flagged by Analyzer 0 % (0-5); Neutrophil # 3.47 X10^3/uL (2.7-7.7); Neutrophil % 59.7 % (47-70); Platelet Count 281 K/mm3 (150-450); RBC Distribution Width CV 12.8 % (11.6-14.6); RBC Distribution Width SD 42.5 fl (35.1-43.9); Red Blood Count 4.37 M/mm3 (4.2-5.4); White Blood Count 5.8 K/mm3 (4.4-11.0)
[2019-03-15 12:53] LABS: ALB/GLOB Ratio 0.8 RATIO (0.9-2.4); AST(SGOT) 14 U/L (15-37); Alanine Aminotransfer ALT/SGPT 18 U/L (13-56); Albumin, Serum 3.2 g/dL (3.2-5.0); Alkaline Phosphatase 82 U/L (45-117); Anion Gap 6 (5-15); BUN 28 mg/dL (7-18); BUN/Creat Ratio 29.7 RATIO (10-20); Chloride 108 mmol/L (98-107); Cholesterol 159 mg/dL (200); Creatinine, Serum 0.94 mg/dL (0.55-1.02); EST Glomerular Filtration Rate 63 mL/min (>60); Est Glom Filt Rate - Afr Amer 76 mL/min (>60); Glucose 96 mg/dL (74-106); High Density Lipoprotein 65 mg/dL; Potassium 4.5 mmol/L (3.5-5.1); Protein, Total 7.2 g/dL (6.4-8.2); Sodium Level 141 mmol/L (136-145); T4 Free Direct 1.15 ng/dL (0.76-1.46); Thyroid Stim Hormone (TSH) < 0.01 uIU/mL (0.358-3.74); Triglycerides 91 mg/dL; Very Low Density Lipoprotein 18 mg/dL (5-40)
== END | disposition home or self-care (01) ==
LOC: BFHLAB 09:52
PROVIDERS: Family Provider Family Medicine; PCP Family Medicine; Visit Provider Family Medicine
DX: E03.9 Hypothyroidism, unspecified (principal); I10 Essential (primary) hypertension; F32.9 Major depressive disorder, single episode, unspecified
CPT/HCPCS: 36415; 80053; 80061; 84439; 84443; 85025

== ENCOUNTER → 2019-06-24 09:47 | Outpatient (CLI) | payer MEDICARE, BC, SELFPAY ==
[2018-04-10 02:51] VITALS: BMI 23.5
[2019-06-24 13:16] LABS: Anion Gap 5 (5-15); BUN 15 mg/dL (7-18); BUN/Creat Ratio 16.1 RATIO (10-20); Chloride 108 mmol/L (98-107); Creatinine, Serum 0.93 mg/dL (0.55-1.02); EST Glomerular Filtration Rate 64 mL/min (>60); Est Glom Filt Rate - Afr Amer 77 mL/min (>60); Glucose 91 mg/dL (74-106); Potassium 3.8 mmol/L (3.5-5.1); Sodium Level 141 mmol/L (136-145); T4 Free Direct 0.81 ng/dL (0.76-1.46); Thyroid Stim Hormone (TSH) 1.77 uIU/mL (0.358-3.74)
== END ==
PROVIDERS: Family Provider Family Medicine; PCP Family Medicine; Visit Provider Family Medicine
DX: I10 Essential (primary) hypertension (principal); E03.9 Hypothyroidism, unspecified
CPT/HCPCS: 36415; 80048; 84439; 84443

== ENCOUNTER → 2020-02-21 | Outpatient (CLI) | payer MEDICARE, BC, SELFPAY ==
[2018-04-10 02:51] VITALS: BMI 23.5
[2020-02-21 15:54] LABS: Absolute Lymphocyte Count 2.06 X10^3/uL (0.83-4.51); Absolute Neutrophil Count 4.3 X10^3/uL (2.0-7.7); Basophil# 0.06 X10^3/uL; Basophil% 0.8 % (0-1); Eosinophil# 0.19 X10^3/uL; Eosinophils% 2.6 % (0-5); Hematocrit 37.8 % (37-47); Hemoglobin 12.1 g/dL (12.0-15.0); Lymphocyte # 2.06 X10^3/ul (4.0); Lymphocyte % 28.7 % (19-41); Mean Corpuscular Volume 90.6 fL (81-99); Mean Platelet Vol. 9.7 fl (6.2-12.0); Monocyte# 0.55 X10^3/uL; Monocyte% 7.7 % (0-10); NRBC Flagged by Analyzer 0 % (0-5); Neutrophil % 59.9 % (47-70); Platelet Count 359 K/mm3 (150-450); RBC Distribution Width CV 12.4 % (11.6-14.6); RBC Distribution Width SD 41.2 fl (35.1-43.9); Red Blood Count 4.17 M/mm3 (4.2-5.4); White Blood Count 7.2 K/mm3 (4.4-11.0)
[2020-02-21 16:43] LABS: Erythrocyte Sedimentation Rate 27 mm/hr (0-30)
[2020-02-21 16:54] LABS: ALB/GLOB Ratio 0.8 RATIO (0.9-2.4); AST(SGOT) 13 U/L (15-37); Alanine Aminotransfer ALT/SGPT 17 U/L (13-56); Albumin, Serum 3.4 g/dL (3.2-5.0); Alkaline Phosphatase 82 U/L (45-117); Anion Gap 6 (5-15); BUN 23 mg/dL (7-18); BUN/Creat Ratio 23.7 RATIO (10-20); CRP 5.45 mg/L (0.0-3.0); Calcium,Total 9.3 mg/dL (8.5-10.1); Chloride 103 mmol/L (98-107); Creatinine, Serum 0.97 mg/dL (0.55-1.02); EST Glomerular Filtration Rate 60 mL/min (>60); Est Glom Filt Rate - Afr Amer 73 mL/min (>60); Globulin 4.2 g/dL (2.2-4.2); Glucose 90 mg/dL (74-106); Potassium 3.7 mmol/L (3.5-5.1); Protein, Total 7.6 g/dL (6.4-8.2); Rheumatoid Factor < 10.0 IU/mL (<15); Sodium Level 138 mmol/L (136-145)
[2020-02-21 17:25] LABS: Hepatitis B Surface Antibody Non-Reactive; Hepatitis B Surface Antigen Non-Reactive (Nonreactive); Hepatitis C Antibody Non-Reactive (Nonreactive)
[2020-02-23 16:47] LABS: ANTINUCLEAR ANTIBODIES DIRECT Negative (Negative)
[2020-02-24 04:21] LABS: CCP IgG Antibodies 7 units (0-19); Hepatitis B Core AB IgM Negative (Negative)
== END | disposition home or self-care (01) ==
LOC: MTLAB 13:31
PROVIDERS: PCP Family Medicine; Referring Provider Internal Medicine Rheumatology; Visit Provider Internal Medicine Rheumatology
DX: M06.4 Inflammatory polyarthropathy (principal); M79.7 Fibromyalgia; M18.0 Bilateral primary osteoarthritis of first carpometacarpal joints; M47.897 Other spondylosis, lumbosacral region; M21.41 Flat foot [pes planus] (acquired), right foot; I10 Essential (primary) hypertension; E03.9 Hypothyroidism, unspecified; G43.909 Migraine, unspecified, not intractable, without status migrainosus; F32.9 Major depressive disorder, single episode, unspecified; F41.0 Panic disorder [episodic paroxysmal anxiety]
CPT/HCPCS: 36415; 80053; 85025; 85652; 86038; 86140; 86200; 86431; 86705; 86706; 86803; 87340

== ENCOUNTER → 2020-04-25 11:26 | Outpatient (CLI) | payer MEDICARE, BC, SELFPAY ==
[2018-04-10 02:51] VITALS: BMI 23.5
[2020-04-25 15:35] LABS: Absolute Lymphocyte Count 2.23 X10^3/uL (0.83-4.51); Absolute Neutrophil Count 4.6 X10^3/uL (2.0-7.7); Basophil# 0.05 X10^3/uL; Basophil% 0.7 % (0-1); Eosinophil# 0.19 X10^3/uL; Eosinophils% 2.5 % (0-5); Hematocrit 39.9 % (37-47); Hemoglobin 12.7 g/dL (12.0-15.0); Lymphocyte # 2.23 X10^3/ul (4.0); Lymphocyte % 29.3 % (19-41); Mean Corp Hgb Conc 31.8 g/dL (32-36); Mean Corpuscular Hgb 29.2 pg (27.0-32.0); Mean Corpuscular Volume 91.7 fL (81-99); Mean Platelet Vol. 9.6 fl (6.2-12.0); Monocyte# 0.56 X10^3/uL; Monocyte% 7.3 % (0-10); NRBC Flagged by Analyzer 0 % (0-5); Neutrophil # 4.57 X10^3/uL (2.7-7.7); Neutrophil % 59.9 % (47-70); Platelet Count 339 K/mm3 (150-450); RBC Distribution Width SD 43.8 fl (35.1-43.9); Red Blood Count 4.35 M/mm3 (4.2-5.4); White Blood Count 7.6 K/mm3 (4.4-11.0)
[2020-04-25 16:27] LABS: ALB/GLOB Ratio 0.9 RATIO (0.9-2.4); AST(SGOT) 16 U/L (15-37); Alanine Aminotransfer ALT/SGPT 16 U/L (13-56); Albumin, Serum 3.5 g/dL (3.2-5.0); Alkaline Phosphatase 102 U/L (45-117); Anion Gap 9 (5-15); BUN 19 mg/dL (7-18); BUN/Creat Ratio 20.9 RATIO (10-20); Calcium,Total 8.8 mg/dL (8.5-10.1); Chloride 103 mmol/L (98-107); Creatinine, Serum 0.91 mg/dL (0.55-1.02); EST Glomerular Filtration Rate 65 mL/min (>60); Est Glom Filt Rate - Afr Amer 79 mL/min (>60); Glucose 85 mg/dL (74-106); Potassium 3.2 mmol/L (3.5-5.1); Protein, Total 7.5 g/dL (6.4-8.2); Sodium Level 138 mmol/L (136-145)
== END ==
PROVIDERS: PCP Family Medicine; Referring Provider Internal Medicine Rheumatology; Visit Provider Internal Medicine Rheumatology
DX: M06.4 Inflammatory polyarthropathy (principal); M79.7 Fibromyalgia; M18.0 Bilateral primary osteoarthritis of first carpometacarpal joints; M47.897 Other spondylosis, lumbosacral region; M21.41 Flat foot [pes planus] (acquired), right foot; I10 Essential (primary) hypertension; E03.9 Hypothyroidism, unspecified; G43.909 Migraine, unspecified, not intractable, without status migrainosus; F32.9 Major depressive disorder, single episode, unspecified; F41.0 Panic disorder [episodic paroxysmal anxiety]; Z79.899 Other long term (current) drug therapy
CPT/HCPCS: 36415; 80053; 85025